=== PATIENT | female | born 2000 | race Caucasian/White ===

== ENCOUNTER 2019-04-25 15:05 | Emergency (ER) | payer BC ==
[2019-04-25 15:27] VITALS: BP 126/83
--- NOTE | 2019-04-25 15:46 | UC ---
Respiratory Complaint HPI - HPI Summary HPI Summary: 18 year old female with h/o Scoliosis, exercise induced asthma presents with cough x 1 week, sinus pain/ congestion x 2-3 week. Pain with coughing at sternum, no chest pain at rest or with excursion. Patient was seen by [facility] at [facility], given amox 04/22, no change in symtpoms since but cough worse/ congestion worse, now in lungs. Denies fever, chills. + fatigue. no GI symptoms. NO meds for asthma. - History of Current Complaint Chief Complaint: UCRespiratory Stated Complaint: COUGH, CONGESTION Time Seen by Provider: 04/25/19 15:15 Hx Obtained From: Patient Hx Last Menstrual Period: 03/30/19 ?: No Onset/Duration: Sudden Onset, Lasting Weeks Timing: Constant Severity Initially: Moderate Severity Currently: Moderate Pain Intensity: 5 Pain Scale Used: 0-10 Numeric Character: Cough: Productive - phlegm Aggravating Factors: Deep Breaths Associated Signs And Symptoms: Positive: URI, Nasal Congestion, Sinus Discomfort. Negative: Dyspnea, Fever, Chills, Wheezing, Hemoptysis, Dizziness, Calf Pain, Calf Swelling, Edema - Allergies/Home Medications Allergies/Adverse Reactions: Allergies Allergy/AdvReac Type Severity Reaction Status Date / Time No Known Allergies Allergy Verified 04/25/19 15:27 Home Medications: Home Medications Norethindr/Eth Estradiol(Nf) [Lo Loestrin Fe (NF)] 1 tab PO QAM 04/25/19 [ History Confirmed 04/25/19] Sudafed Flu Severe 2 tab PO DAILY PRN 04/25/19 [History Confirmed 04/25/19] PMH/Surg Hx/FS Hx/Imm Hx Previously Healthy: Yes - sciolosis - Surgical History Surgical History: None - Family History Known Family History: Positive: Non-Contributory - Social History Occupation: Student Alcohol Use: Weekly Alcohol Amount: 25 week Substance Use Type: None Smoking Status (MU): Never Smoked Tobacco Review of Systems All Other Systems Reviewed And Are Negative: Yes Constitutional: Positive: Negative Respiratory: Positive: Negative Genitourinary: Positive: Negative Musculoskeletal: Positive: Arthralgia, Decreased ROM, Myalgia Is Patient Immunocompromised?: No Physical Exam Triage Information Reviewed: Yes Appearance: No Pain Distress, Well-Nourished, Ill-Appearing - mild Vital Signs: Initial Vital Signs Temp 98.2 F 04/25/19 15:17 Pulse 75 04/25/19 15:17 Resp 24 04/25/19 15:17 BP 126/83 04/25/19 15:17 Pulse Ox 100 04/25/19 15:17 Vital Signs Reviewed: Yes Eyes: Positive: Conjunctiva Clear ENT: Positive: Hearing grossly normal, Pharynx normal, Nasal congestion, Nasal drainage, TMs normal, Sinus tenderness. Negative: Pharyngeal erythema, TM bulging, TM dull, TM red, Tonsillar swelling, Tonsillar exudate, Uvula midline Neck: Positive: Supple, Nontender, No Lymphadenopathy. Negative: Nuchal Rigidity, Enlarged Nodes @ Respiratory: Positive: Chest non-tender, Lungs clear, No respiratory distress, No accessory muscle use, Decreased breath sounds - right LL. Negative: Crackles , Rhonchi, Stridor, Wheezing Cardiovascular: Positive: RRR, No Murmur Neurological Exam: Normal Psychological Exam: Normal Respiratory Course/Dx - Course Course Of Treatment: Tire Repair Mechanic: Richard Osborn C ([id number]) Servomechanism Assembler: JESSICA ( JESSICA) Report Date: 04/25/2019 15:47:00 Report Status: Final ====== Start of Report Content Patient Name: DANIELLE EDEN Medical Record#: [id number] Ordering Physician: Taylor CLAY Acct.#: [id number] : Age: 18 Sex: F Location: [facility] Exam Date: 04/25/19 154 ADM Status: REG ER Order Information: CHEST PA LAT 2 VWS Accession Number: [id number] CPT: 09079 INDICATION: 3 weeks cough. Intermittent chest pain with coughing. Nasal congestion. On antibiotics. COMPARISON: No relevant prior exams available on the [facility] PACS for comparison. TECHNIQUE: Dual energy PA and lateral views of the chest were obtained. REPORT: No focal pulmonary lesion, compelling alveolar consolidation, pleural effusion, pneumothorax. 45 degrees dextroscoliosis measured between T6 and T12. Accounting for RIGHT convex curve the heart, central pulmonary vasculature, and mediastinal contours are unremarkable. No rib fracture evident. IMPRESSION: #. No evidence for pneumonia. < Electronically signed by Richard Osborn MD in OV> 04/25/191613 Dictated By: Richard Osborn MD Dictated Date/Time: 04/25/191611 Transcribed Date/Time: 1611 Copy to: CC:Tammy Long MD; Taylor CLAY; No Primary Care Phys ,NOPCP Imaging - [facility] - [facility] [address] [address] ph ([phone]) ph ([phone]) ph ([phone]) End of Report Content Sinusitis: - Change antibiotic from amoxicillin to azithromycin - Increase fluid intake - Motrin/ TYlenol as needed for pain - Over the counter medications as needed for symptoms. - Return with worsening pain, fever > 102, increased coughing or shortness of breath - Differential Dx/Diagnosis Differential Diagnosis/HQI/PQRI: Laryngitis, Sinusitis Provider Diagnosis: Sinusitis Discharge ED - Sign-Out/Discharge Documenting (check all that apply): Patient Departure All imaging exams completed and their final reports reviewed: Yes - Discharge Plan Condition: Good Disposition: HOME Prescriptions: Azithromyxin CHARLES (NF) [Z-Charles (Zithromax) 250 mg tabs #6] 2 tab PO .TODAY, THEN 1 DAILY #6 tab Patient Education Materials: Sinusitis (ED) Forms: *School Release Referrals: No Primary Care Phys,NOPCP [Primary Care Provider] - Additional Instructions: - Change antibiotic from amoxicillin to azithromycin - Increase fluid intake - Motrin/ TYlenol as needed for pain - Over the counter medications as needed for symptoms. - Return with worsening pain, fever > 102, increased coughing or shortness of breath - Billing Disposition and Condition Condition: GOOD Disposition: Home
== END 2019-04-25 16:32 | disposition home or self-care (01) ==
LOC: UCCORT 15:05
DX: J32.9 Chronic sinusitis, unspecified (principal); M79.10 Myalgia, unspecified site
CPT/HCPCS: 71046; 99202; G0463